=== PATIENT | female | born 1965 | race Caucasian/White ===

== ENCOUNTER 2023-11-22 15:09 | Inpatient (IN) | payer MEDICAID ==
[~2023-11-22] VITALS: Ht 160 cm; Wt 132.5 kg
[2023-11-22 17:21] LABS: GLUCOMETER DEV NAME(LOC) POC.BV; POC SARS-COV2 AG, FIA NEGATIVE (NEGATIVE)
[2023-11-22 23:30] VITALS: BP 179/89; PULSE 82; RESP 20; TEMP 97.6; O2SAT 91
[2023-11-22] MEDS ORDERED: PNEUMOCOCCAL VACCINE POLYVALENT 0.5 ML SYRINGE [PPSV23] IM. ONE (23:45)
[2023-11-23] MEDS ORDERED: PETROLATUM,WHITE 28 GM JELLY TP PRN (00:15)
[2023-11-23] MEDS ORDERED: CloNIDine HCL 0.1 MG TABLET PO PRN (00:15)
[2023-11-23] MEDS ORDERED: DOCUSATE SODIUM 100 MG CAPSULE PO PRN (00:15)
[2023-11-23] MEDS ORDERED: GuaiFENesin/D-METHORPHAN [SUGAR-FREE] 200-20MG/10 ML SYRUP UDCUP PO PRN (00:15)
[2023-11-23] MEDS ORDERED: MAG HYDROX/ALUMINUM HYD/SIMETH ES 30 ML SUSPENSION UDCUP PO PRN (00:15)
[2023-11-23] MEDS ORDERED: ONDANSETRON HCL 4 MG TABLET PO PRN (00:15)
[2023-11-23] MEDS ORDERED: LOPERAMIDE HCL 2 MG CAPSULE PO PRN (00:15)
[2023-11-23] MEDS ORDERED: MAGNESIUM HYDROXIDE SUSPENSION 30 ML UDCUP PO PRN (00:15)
[2023-11-23 02:51] VITALS: PULSE 72; RESP 19; O2SAT 93
[2023-11-23 04:40] VITALS: PULSE 71; RESP 12; O2SAT 95
[2023-11-23 06:54] LABS: BASOPHILS % (AUTO) 0.7 % (0.0-2.0); EOSINOPHILS % (AUTO) 1.8 % (1.0-6.0); HEMATOCRIT 39.4 % (36-46); HEMOGLOBIN 12.8 g/dL (12.0-16.0); LYMPHOCYTES # (AUTO) 3.2 K/uL (1.0-4.8); LYMPHOCYTES % (AUTO) 25.4 % (22.0-44.0); MEAN CORPUSCULAR HEMOGLOBIN 28.7 pg (26.0-34.0); MEAN CORPUSCULAR HGB CONC 32.5 G/dL (31.0-37.0); MEAN CORPUSCULAR VOLUME 89 fL (80-100); MONOCYTES # (AUTO) 0.9 K/uL (0.1-1.0); MONOCYTES % (AUTO) 7.5 % (2.0-9.0); NEUTROPHILS # (AUTO) 8.1 K/uL (1.8-7.7); NEUTROPHILS % (AUTO) 64.6 % (40.0-70.0); PLATELET COUNT (AUTO) 308 K/uL (150-450); RED BLOOD CELL COUNT(AUTO) 4.46 MIL/uL (4.00-5.20); RED CELL DISTRIBUTION WIDTH 15.6 % (11.5-14.5); WHITE BLOOD COUNT (AUTO) 12.5 K/uL (4.5-11.0)
[2023-11-23 07:16] LABS: ALANINE AMINOTRANSFERASE 18 U/L (12-78); ALBUMIN 3.4 g/dL (3.4-5.0); ALKALINE PHOSPHATASE 82 U/L (46-116); ANION GAP 10 mmol/L (8-16); ASPARTATE AMINOTRANSFERASE 15 U/L (15-37); BILIRUBIN,TOTAL 0.4 mg/dL (0.1-1.0); CALCIUM, TOTAL 8.7 mg/dL (8.8-10.5); CARBON DIOXIDE 27 mmol/L (22-29); CHLORIDE 102 mmol/L (98-107); CHOL/HDL RATIO 3.1 (3.9-5.7); CHOLESTEROL 171 mg/dL (131-200); CREATININE 0.68 mg/dL (0.60-1.30); FREE T4 (FREE THYROXINE) 0.93 ng/dL (0.76-1.46); GLOMERULAR FILTR. RATE CALC > 60 mL/min (>60); GLUCOSE,RANDOM 120 mg/dL (70-110); HCG,QUANTITATIVE 5 mIU/mL (0-6); HDL CHOLESTEROL 55 mg/dL (40-60); LDL CHOL (CALC.) 94 mg/dL (0-130); POTASSIUM 4.1 mmol/L (3.5-5.1); SODIUM SERUM 139 mmol/L (136-145); T4 (THYROXINE) 8.2 mcg/dL (4.7-13.3); TOTAL PROTEIN, SERUM 7.8 g/dL (6.4-8.2); TRIGLYCERIDES 110 mg/dL (15-150); UREA NITROGEN, BLOOD 18 mg/dL (7-18)
[2023-11-23 07:37] LABS: HEMOGLOBIN A1C 6.3 % (3.8-5.6)
[2023-11-23 08:46] VITALS: BP 173/95; PULSE 82; RESP 20; TEMP 98
[2023-11-23] MEDS: LORazepam 2 MG TABLET PO PRN (08:48)
[2023-11-23] MEDS: NICOTINE 14 MG/24 HOUR PATCH TD PRN (08:48)
[2023-11-23] MEDS: OLANZapine 5 MG TABLET PO SCH (09:26)
[2023-11-23] MEDS: ALBUTEROL SULFATE HFA 90 MCG/PUFF 8 GM INHALER IH PRN (09:26)
[2023-11-23] MEDS: TraZODone HCL 150 MG TABLET PO SCH (21:12)
[2023-11-23 23:14] VITALS: BP 162/71; PULSE 87; RESP 18; TEMP 97.2; O2SAT 93
[2023-11-24 08:35] LABS: BASOPHILS % (AUTO) 0.8 % (0.0-2.0); EOSINOPHILS % (AUTO) 1.5 % (1.0-6.0); HEMATOCRIT 40.1 % (36-46); LYMPHOCYTES # (AUTO) 2.1 K/uL (1.0-4.8); MEAN CORPUSCULAR HEMOGLOBIN 28.8 pg (26.0-34.0); MEAN CORPUSCULAR HGB CONC 32.5 G/dL (31.0-37.0); MEAN CORPUSCULAR VOLUME 89 fL (80-100); MONOCYTES # (AUTO) 0.6 K/uL (0.1-1.0); MONOCYTES % (AUTO) 7.2 % (2.0-9.0); NEUTROPHILS # (AUTO) 6.1 K/uL (1.8-7.7); NEUTROPHILS % (AUTO) 67.5 % (40.0-70.0); PLATELET COUNT (AUTO) 295 K/uL (150-450); RED BLOOD CELL COUNT(AUTO) 4.53 MIL/uL (4.00-5.20); RED CELL DISTRIBUTION WIDTH 15.8 % (11.5-14.5)
[2023-11-24 08:55] LABS: HEMOGLOBIN A1C 6.3 % (3.8-5.6)
[2023-11-24 09:24] LABS: ALANINE AMINOTRANSFERASE 17 U/L (12-78); ALBUMIN 3.3 g/dL (3.4-5.0); ALKALINE PHOSPHATASE 76 U/L (46-116); ANION GAP 10 mmol/L (8-16); ASPARTATE AMINOTRANSFERASE 14 U/L (15-37); BILIRUBIN,TOTAL 0.3 mg/dL (0.1-1.0); CALCIUM, TOTAL 8.8 mg/dL (8.8-10.5); CARBON DIOXIDE 27 mmol/L (22-29); CHLORIDE 101 mmol/L (98-107); CHOL/HDL RATIO 3.3 (3.9-5.7); CHOLESTEROL 173 mg/dL (131-200); CREATININE 0.81 mg/dL (0.60-1.30); GLOMERULAR FILTR. RATE CALC > 60 mL/min (>60); GLUCOSE,RANDOM 165 mg/dL (70-110); HDL CHOLESTEROL 52 mg/dL (40-60); LDL CHOL (CALC.) 99 mg/dL (0-130); POTASSIUM 4.1 mmol/L (3.5-5.1); SODIUM SERUM 138 mmol/L (136-145); THYROID STIMULATING HORMONE 1.85 uIU/mL (0.36-3.74); TOTAL PROTEIN, SERUM 7.7 g/dL (6.4-8.2); TRIGLYCERIDES 109 mg/dL (15-150); UREA NITROGEN, BLOOD 15 mg/dL (7-18)
[2023-11-24 10:29] VITALS: BP 113/56; PULSE 74; RESP 17; TEMP 97.2
[2023-11-24] MEDS: IBUPROFEN 400 MG TABLET PO PRN (10:29)
[2023-11-24 11:21] VITALS: BP 113/56; PULSE 74; RESP 17; TEMP 97.3; O2SAT 94
[2023-11-24 11:29] VITALS: BP 118/67; PULSE 79; RESP 18; TEMP 98
[2023-11-24 21:18] VITALS: BP 111/56; PULSE 18; RESP 18; TEMP 97.5; O2SAT 97
[2023-11-25 04:31] VITALS: BP 118/60; PULSE 70; RESP 17; TEMP 98; O2SAT 95
[2023-11-25 05:34] VITALS: RESP 18
[2023-11-25 11:11] VITALS: BP 115/53; PULSE 75; RESP 18; TEMP 97.3; O2SAT 95
[2023-11-25 21:26] VITALS: BP 132/76; PULSE 72; RESP 18; TEMP 97.1; O2SAT 98
[2023-11-25 21:28] VITALS: BP 122/76; PULSE 72; RESP 18; TEMP 97.1; O2SAT 98
[2023-11-26 11:14] VITALS: BP 105/56; PULSE 84; RESP 18; TEMP 98.4
[2023-11-26 12:14] VITALS: BP 121/63; PULSE 75; RESP 18; TEMP 96.4
[2023-11-26] MEDS: ZOLPIDEM TARTRATE 10 MG TABLET PO PRN (21:33)
[2023-11-26 21:39] VITALS: BP 131/70; PULSE 83; RESP 18; TEMP 97.5; O2SAT 93
[2023-11-27 08:22] VITALS: BP 116/70; PULSE 78; RESP 17; TEMP 97.9; O2SAT 98
[2023-11-27] MEDS ORDERED: NICOTINE POLACRILEX 2 MG LOZENGE PO PRN (08:30)
[2023-11-27] MEDS: HALOPERIDOL 5 MG TABLET PO PRN (11:08)
[2023-11-27] MEDS: NICOTINE 21 MG/24 HOUR PATCH TD PRN (12:34)
[2023-11-27 20:52] VITALS: BP 125/69; PULSE 75; RESP 19; TEMP 97.5; O2SAT 98
[2023-11-28 11:19] VITALS: BP 109/57; PULSE 81; RESP 18; TEMP 97; O2SAT 95
[2023-11-28 20:21] VITALS: BP 107/71; PULSE 81; RESP 18; TEMP 98.1; O2SAT 98
[2023-11-29 09:46] VITALS: BP 120/85; PULSE 96; RESP 18; TEMP 97.5; O2SAT 100
[2023-11-29 22:40] VITALS: BP 124/76; PULSE 76; RESP 18; TEMP 97.1; O2SAT 96
[2023-11-30 09:11] VITALS: BP 135/79; PULSE 78; RESP 18; TEMP 97.8; O2SAT 97
[2023-11-30 13:38] VITALS: RESP 18
[2023-11-30 14:20] VITALS: RESP 16
[2023-11-30 21:52] VITALS: BP 114/58; PULSE 73; RESP 16; TEMP 97.5; O2SAT 96
[2023-11-30 23:35] VITALS: BP 120/80; PULSE 81; RESP 19; TEMP 97.9; O2SAT 98
[2023-12-01 00:42] VITALS: RESP 18
[2023-12-01 09:10] VITALS: BP 112/65; PULSE 79; RESP 18; TEMP 98.1; O2SAT 96
[2023-12-01 20:32] VITALS: BP 102/75; PULSE 85; RESP 19; TEMP 97.5; O2SAT 98
[2023-12-02 09:28] VITALS: BP 121/68; PULSE 88; RESP 18; TEMP 97.4; O2SAT 96
[2023-12-02 20:51] VITALS: BP 146/90; PULSE 74; RESP 18; TEMP 97.8; O2SAT 96
[2023-12-02 21:55] VITALS: RESP 18
[2023-12-03 09:30] VITALS: BP 125/76; PULSE 83; RESP 18; TEMP 97.6; O2SAT 95
[2023-12-03 13:01] VITALS: BP 132/76; PULSE 78; RESP 18
[2023-12-03 14:03] VITALS: RESP 17
[2023-12-03 21:00] VITALS: BP 123/73; PULSE 90; RESP 18; TEMP 97.1
[2023-12-03 21:35] VITALS: BP 123/73; PULSE 110; RESP 18; TEMP 97.1
[2023-12-03 22:15] VITALS: RESP 18
[2023-12-04 09:42] VITALS: BP 122/64; PULSE 85; RESP 18; TEMP 97.9; O2SAT 95
[2023-12-04 09:45] VITALS: BP 122/64; PULSE 85; RESP 18; TEMP 97.9; O2SAT 95
[2023-12-04] MEDS: NICOTINE 21 MG/24 HOUR PATCH TD SCH (11:39)
[2023-12-04 16:19] VITALS: BP 119/72; PULSE 89; RESP 19; TEMP 98.2; O2SAT 96
[2023-12-04 17:19] VITALS: BP 121/84; PULSE 78; RESP 18; TEMP 98; O2SAT 97
[2023-12-04 20:39] VITALS: BP 146/76; PULSE 76; RESP 18; TEMP 98.1; O2SAT 97
[2023-12-05 08:00] VITALS: BP 121/75; PULSE 85; RESP 17; TEMP 97.9; O2SAT 96
[2023-12-05 11:26] VITALS: BP 124/78; PULSE 82; RESP 18; TEMP 97.8
[2023-12-05 12:26] VITALS: BP 120/74; PULSE 78; RESP 18; TEMP 97.4
[2023-12-05 20:44] VITALS: BP 132/79; PULSE 76; RESP 18; TEMP 97.4
[2023-12-06 04:12] VITALS: BP 128/76; PULSE 81; RESP 18; TEMP 97.3
[2023-12-06 09:30] VITALS: BP 124/77; PULSE 87; RESP 18; TEMP 97.5; O2SAT 96
[2023-12-06] MEDS: ACETAMINOPHEN 325 MG TABLET PO PRN (09:34)
[2023-12-06 20:27] VITALS: BP 122/73; PULSE 81; RESP 18; TEMP 97.7
[2023-12-07 08:25] VITALS: BP 150/81; PULSE 78; RESP 18; TEMP 97.8; O2SAT 97
[2023-12-07] MEDS: OLANZapine 10 MG TABLET PO SCH (17:56)
[2023-12-08 10:03] VITALS: BP 142/90; PULSE 90; RESP 18; TEMP 97; O2SAT 96
[2023-12-08 15:21] VITALS: BP 138/86; PULSE 84; RESP 18; TEMP 97.4
[2023-12-08 16:21] VITALS: BP 128/78; PULSE 86; RESP 18; TEMP 97.3
[2023-12-08 22:13] VITALS: BP 141/76; PULSE 84; RESP 18; TEMP 97.7
[2023-12-09 10:20] VITALS: BP 126/90; PULSE 90; RESP 18; TEMP 98.5; O2SAT 95
[2023-12-09 12:02] LABS: ABG BASE EXCESS 3.1 mmol/L (-2.0-3.0); ABG CARBOXYHEMOGLOBIN 0.9 % (0.0-1.5); ABG METHEMOGLOBIN 0.3 % (0.0-1.5); ABG OXYGEN CONTENT 17.9 mL/dL (15.0-23.0); ABG OXYGEN SATURATION 93.4 % (95.0-98.0); ABG OXYHEMOGLOBIN 92.3 % (94.0-100.0); ABG PCO2 41 mmHg (35-45); ABG PH 7.442 (7.35-7.450); ABG TOTAL HEMOGLOBIN 13.8 G/dL (12.0-18.0); PO2, ARTERIAL BG 62.9 mmHg (84.0-92.0); SOURCE, BLOOD GAS ARTERIAL; TEMPERATURE, FAHRENHEIT, BG 98.5 FAHREN (96.0-98.6)
[2023-12-09 12:04] LABS: ALLEN TEST, BLOOD GAS POS; SITE, BLOOD GAS RT BRACHIAL
[2023-12-09] MEDS ORDERED: OLAN10TA74 PO (17:15)
[2023-12-09] MEDS ORDERED: TRAZ-283 PO (17:15)
[2023-12-18] MEDS ORDERED: METO25 PO (11:16)
[2023-12-18] MEDS ORDERED: APIX5TAB PO (11:17)
== END 2023-12-09 17:13 | disposition short-term general hospital (02) | DRG 750 ==
LOC: 3EI 22:55
PROVIDERS: ADMIT Psychiatry & Neurology Child & Adolescent Psychiatry; ATTEND Psychiatry & Neurology Child & Adolescent Psychiatry
PROC: GZHZZZZ Group Psychotherapy (ICD-10-PCS; principal; 2023-11-25)
DX: F20.0 Paranoid schizophrenia (principal); Z68.43 Body mass index [BMI] 50.0-59.9, adult; F41.9 Anxiety disorder, unspecified; G47.33 Obstructive sleep apnea (adult) (pediatric); D72.829 Elevated white blood cell count, unspecified; R73.03 Prediabetes; Z20.822 Contact with and (suspected) exposure to COVID-19; F10.10 Alcohol abuse, uncomplicated; E66.01 Morbid (severe) obesity due to excess calories; F19.10 Other psychoactive substance abuse, uncomplicated; G47.00 Insomnia, unspecified
CPT/HCPCS: 36600; 71045; 80053; 80061; 82805; 83036; 84436; 84439; 84443; 84702; 85025; 86592; 87081; 94660; J3535; 36415-L1; 36415-TC

== ENCOUNTER 2023-11-22 19:21 | Emergency (ER) | payer MEDICAID ==
[~2023-11-22] VITALS: Ht 160 cm; Wt 106.8 kg
[2023-11-22 19:41] VITALS: BP 118/83; TEMP 98.2
[2023-11-22] MEDS: HALOPERIDOL 5 MG TABLET PO ONE (20:25)
[2023-11-22] MEDS: TraZODone HCL 50 MG TABLET PO ONE (20:25)
[2023-11-22] MEDS: HydrOXYzine PAMOATE 50 MG CAPSULE PO ONE (20:25)
[2023-11-22] MEDS: NICOTINE 14 MG/24 HOUR PATCH TD ONE (20:26)
[2023-11-22 20:27] LABS: BASOPHILS % (AUTO) 0.9 % (0.0-2.0); EOSINOPHILS % (AUTO) 1.7 % (1.0-6.0); HEMOGLOBIN 12.9 g/dL (12.0-16.0); LYMPHOCYTES # (AUTO) 3.4 K/uL (1.0-4.8); LYMPHOCYTES % (AUTO) 25.6 % (22.0-44.0); MEAN CORPUSCULAR HEMOGLOBIN 29.1 pg (26.0-34.0); MEAN CORPUSCULAR HGB CONC 33.2 G/dL (31.0-37.0); MEAN CORPUSCULAR VOLUME 88 fL (80-100); MONOCYTES % (AUTO) 7.8 % (2.0-9.0); NEUTROPHILS # (AUTO) 8.4 K/uL (1.8-7.7); PLATELET COUNT (AUTO) 326 K/uL (150-450); RED BLOOD CELL COUNT(AUTO) 4.45 MIL/uL (4.00-5.20); RED CELL DISTRIBUTION WIDTH 15.6 % (11.5-14.5); WHITE BLOOD COUNT (AUTO) 13.2 K/uL (4.5-11.0)
[2023-11-22 20:36] LABS: COVID AG,FIA SOURCE NASAL SWAB
[2023-11-22 20:38] LABS: ANION GAP 9 mmol/L (8-16); CALCIUM, TOTAL 9.2 mg/dL (8.8-10.5); CARBON DIOXIDE 30 mmol/L (22-29); CHLORIDE 102 mmol/L (98-107); CREATININE 0.77 mg/dL (0.60-1.30); GLOMERULAR FILTR. RATE CALC > 60 mL/min (>60); GLUCOSE,RANDOM 140 mg/dL (70-110); SODIUM SERUM 141 mmol/L (136-145); UREA NITROGEN, BLOOD 19 mg/dL (7-18)
[2023-11-22 20:41] LABS: PH,URINE DRUG SCREEN 5.5 (5.0-8.0)
[2023-11-22 20:44] LABS: ALANINE AMINOTRANSFERASE 20 U/L (12-78); ALBUMIN 3.5 g/dL (3.4-5.0); ALKALINE PHOSPHATASE 84 U/L (46-116); ASPARTATE AMINOTRANSFERASE 15 U/L (15-37); BILIRUBIN,TOTAL 0.2 mg/dL (0.1-1.0)
[2023-11-22 20:45] LABS: ALCOHOL, URINE DRUG SCREEN NEGATIVE (NEGATIVE); AMPHET/METH SCREEN,URINE NEGATIVE (NEGATIVE); BARBITURATE SCREEN, URINE NEGATIVE (NEGATIVE); BENZODIAZEPINES SCREEN,URINE NEGATIVE (NEGATIVE); CANNABINOID SCREEN,URINE NEGATIVE (NEGATIVE); COCAINE SCREEN,URINE NEGATIVE (NEGATIVE); METHADONE SCREEN, URINE NEGATIVE (NEGATIVE); OPIATE SCREEN,URINE NEGATIVE (NEGATIVE); PHENCYCLIDINE SCREEN,URINE NEGATIVE (NEGATIVE)
[2023-11-22 20:45] LABS: TROPONIN I-HIGH SENSITIVITY 18 ng/L (<51)
[2023-11-22 20:48] LABS: ALCOHOL, BLOOD (SERUM) < 3 mg/dL (0-10)
[2023-11-22 20:50] LABS: B-TYPE NATRIURETIC PEPTIDE 115 pg/mL (0-100)
[2023-11-22 20:58] LABS: SARS-COV2 (COVID) ANTIGEN,FIA Negative (Negative)
[2023-11-22 22:13] VITALS: PULSE 70; RESP 18
== END 2023-11-22 23:00 | disposition admitted as inpatient to this hospital (09) ==
LOC: EMS 19:21
DX: F29 Unspecified psychosis not due to a substance or known physiological condition (principal); J44.9 Chronic obstructive pulmonary disease, unspecified; F17.210 Nicotine dependence, cigarettes, uncomplicated; Z85.9 Personal history of malignant neoplasm, unspecified; Z20.822 Contact with and (suspected) exposure to COVID-19
CPT/HCPCS: 99285; 71045; 87426; 80053; 83880; 84484; 85025; 36415; 93005; 80307; G0480